=== PATIENT | female | born 1950 | race African-American/Black ===

== ENCOUNTER 2022-05-28 10:16 | Emergency (ER) | payer OTHER, MEDICARE ==
[2022-05-28] MEDS ORDERED: Acetaminophen 500 MG TAB ONE (13:02)
== END 2022-05-28 13:24 | disposition home or self-care (01) ==
LOC: CSHERS 10:16
DX: S80.02XA Contusion of left knee, initial encounter (principal); I10 Essential (primary) hypertension; V43.52XA Car driver injured in collision with other type car in traffic accident, initial encounter